=== PATIENT | male | born 1940 | race Caucasian/White ===

== ENCOUNTER → 2016-08-05 | Outpatient (CLI) | payer MEDICARE, BC | END | disposition home or self-care (01) | LOC: PCVCCLINIC 13:42 | PROVIDERS: ATTEND Internal Medicine | DX: Z01.810 Encounter for preprocedural cardiovascular examination (principal); I48.0 Paroxysmal atrial fibrillation; R07.89 Other chest pain; I10 Essential (primary) hypertension; E78.00 Pure hypercholesterolemia, unspecified | CPT/HCPCS: 80061; 93005; G0463 ==

== ENCOUNTER → 2016-08-13 | Outpatient (CLI) | payer MEDICARE, BC ==
[~2016-08-13] MED LIST: REGADENOSON 0.4 MG/5 ML DISP.SYRIN. IV ONE
== END | disposition home or self-care (01) ==
LOC: PCVCIMAG 07:45
PROVIDERS: ATTEND Internal Medicine
DX: Z01.810 Encounter for preprocedural cardiovascular examination (principal); R07.9 Chest pain, unspecified; I48.0 Paroxysmal atrial fibrillation
CPT/HCPCS: 78452; 93017; 93306; A9500; J2785

== ENCOUNTER → 2016-08-24 | Outpatient (CLI) | payer MEDICARE, BC | END | disposition home or self-care (01) | LOC: PCVCCLINIC 14:07 | PROVIDERS: ATTEND Internal Medicine | DX: R06.09 Other forms of dyspnea (principal); I48.0 Paroxysmal atrial fibrillation; E78.00 Pure hypercholesterolemia, unspecified; I10 Essential (primary) hypertension | CPT/HCPCS: G0463 ==